=== PATIENT | male | born 1965 | race Caucasian/White ===

== ENCOUNTER 2022-09-09 08:02 | Outpatient (CLI) | payer OTHER | END 2022-09-09 08:16 | disposition home or self-care (01) | LOC: RAD 08:02 → EMR ICU 08:02 | PROVIDERS: ATTEND Physical Medicine & Rehabilitation | DX: M75.101 Unspecified rotator cuff tear or rupture of right shoulder, not specified as traumatic (principal) ==

== ENCOUNTER 2023-11-04 08:05 | Outpatient (CLI) | payer OTHER | END 2023-11-04 08:41 | disposition home or self-care (01) | LOC: SONOGRAMA 08:05 | PROVIDERS: ATTEND Physical Medicine & Rehabilitation | DX: M77.31 Calcaneal spur, right foot (principal); M17.0 Bilateral primary osteoarthritis of knee; S93.401A Sprain of unspecified ligament of right ankle, initial encounter ==

== ENCOUNTER 2024-05-12 07:27 | Outpatient (CLI) | payer OTHER | END 2024-05-12 07:43 | disposition home or self-care (01) | LOC: MRI 07:27 | DX: M51.26 Other intervertebral disc displacement, lumbar region (principal) | CPT/HCPCS: 72148 ==